=== PATIENT | male | born 1995 | race Caucasian/White ===

== ENCOUNTER → 2024-09-11 08:24 | Outpatient (CLI) | payer OTHER, SELFPAY ==
--- NOTE | 2024-09-11 08:26 | DI.CT.S_ITS ---
PROCEDURE: CT WRIST LEFT WITHOUT CON INDICATIONS: Displaced fracture of Left wrist TECHNIQUE: Noncontrast 1 mm axial sections acquired through the carpal bones, with coronal and sagittal reformats. COMPARISON: None. FINDINGS: Image quality: Diagnostic Bones: There is prior fixation of scaphoid fracture with surgical hardware in place. Likely bone graft harvesting site in distal radius is seen. 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 Partially united scaphoid waist fracture is seen. No definite CT evidence of avascular necrosis. No other fracture or dislocation. No suspicious bony lesions. Soft tissues: No discrete soft tissue mass or drainable fluid collection. Small radiocarpal and ulnar carpal joint effusion is seen, no calcified intra-articular loose bodies. No full-thickness extensor or flexor tendon ruptures. IMPRESSION: 1. Postsurgical changes at scaphoid with likely bone graft harvesting site in distal radius. Partially united transverse fracture through scaphoid waist. No CT evidence of avascular necrosis. 2. No other fracture or dislocation. 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 No suspicious bony lesions. 3. Small wrist joint effusion, no calcified intra-articular loose bodies. No soft tissue mass or drainable fluid collection. No full-thickness wrist tendon rupture. Dictated by: Christos Romeo M.D. on 09/13/2024 at 12:58 Approved by: Christos Romeo M.D. on 09/13/2024 at 13:02
== END ==
PROVIDERS: Referring Provider Student in an Organized Health Care Education/Training Program; Visit Provider Student in an Organized Health Care Education/Training Program
DX: S62.022K Displaced fracture of middle third of navicular [scaphoid] bone of left wrist, subsequent encounter for fracture with nonunion (principal); M25.432 Effusion, left wrist; X58.XXXD Exposure to other specified factors, subsequent encounter
CPT/HCPCS: 73200